=== PATIENT | female | born 1990 | race Caucasian/White ===

== ENCOUNTER 2016-08-11 07:35 | Emergency (ER) | payer MEDICAID ==
[~2016-08-11] VITALS: Ht 152.4 cm; Wt 67.1 kg
[2016-08-11 07:38] VITALS: BP 113/65
--- NOTE | 2016-08-11 07:47 | NUR ---
PATIENT AMBULATED TO BED 5 AT THIS TIME.
--- NOTE | 2016-08-11 07:50 | NUR ---
25/F BIB FAMILY C/O VAGINAL BLEEDING W/ CLOTTS X THIS MORNING; PT STATES HAD VAGINAL BLEEDING X LAST NIGHT; PT STATES ABOUT 1-2 MONTHS , W/ FIRST APPOINTMENT TOMORROW. PT DENIES N/V/D; SKIN IS PINK/WARM/DRY; AAOX4 WITH EVEN AND STEADY GAIT; LUNGS CLEAR BL; HR EVEN AND REGULAR; PT DENIES ANY FEVER, CP, SOB, OR COUGH AT THIS TIME; PATIENT STATES SHARP PAIN OF 8/10 AT THIS TIME; VSS; PATIENT POSITIONED FOR COMFORT; HOB ELEVATED; BEDRAILS UP X2; BED DOWN. ER MD MADE AWARE OF PT STATUS.
--- NOTE | 2016-08-11 07:55 | NUR ---
ER DR BHANDARI EVALUATING AT BEDSIDE
--- NOTE | 2016-08-11 07:57 | NUR ---
US AT BEDSIDE
--- NOTE | 2016-08-11 08:03 | NUR ---
LAB AT BEDSIDE
[2016-08-11] MEDS ORDERED: ACETAMINOPHEN 325 MG TAB PO ONE (08:05)
[2016-08-11 09:54] VITALS: BP 107/67
--- NOTE | 2016-08-11 09:54 | NUR ---
Patient discharged with v/s stable. Written and verbal after care instructions given and explained. Patient verbalized understanding. Ambulatory with steady gait. All questions addressed prior to discharge. Advised to follow up with PMD.
== END 2016-08-11 09:54 | disposition home or self-care (01) ==
LOC: MED 07:50
DX: O20.9 Hemorrhage in early pregnancy, unspecified (principal); Z3A.01 Less than 8 weeks gestation of pregnancy
CPT/HCPCS: 36415; 76817; 81001; 81025; 84702; 85025; 86900; 86901; 87086; 99285; Q0092

== ENCOUNTER 2018-02-08 19:40 | Emergency (ER) | payer MEDICAID ==
[~2018-02-08] VITALS: Ht 160 cm; Wt 72.6 kg
[2018-02-08 19:47] VITALS: BP 126/70
--- NOTE | 2018-02-08 19:47 | NUR ---
TO BED # 9 AMBULATORY REPORT GIVEN TO JUSTIN BOSS
--- NOTE | 2018-02-08 19:52 | NUR ---
Amna strong in [facility] - 02/08/18 at 1952 by [facility] TO ER BED 9
--- NOTE | 2018-02-08 20:20 | NUR ---
PT BIB SELF TO ER FOR GENERALIZED RASH SINCE WEDNESDAY. PT STATES SHE HAD "6 VITAMIN SHOTS IN [place]" LAST SHOT WAS ON WEDNESDAY. SHOTS WERE TO BUTTOCKS REDNESS NOTED TO AREA, PT HAS ITCHING TO AREA AND PAIN WHEN SITTING DOWN. RR EVEN AND UNLABORED, BL BS CLEAR THROUGH OUT. PT LAYING IN BED, IN NO ACUTE DISTRESS, WILL CONTINUE W/ ORDERS.
[2018-02-08] MEDS ORDERED: FAMOTIDINE 20 MG TAB PO ONE (20:30)
[2018-02-08] MEDS ORDERED: predniSONE 20 MG TAB PO ONE (20:30)
[2018-02-08] MEDS ORDERED: cefTRIAXone 1,000 MG in LIDOCAINE MPF 1% - 5 mL VIAL 2.1 ML IM ONE (20:35)
[2018-02-08 21:25] VITALS: BP 117/63
--- NOTE | 2018-02-08 21:25 | NUR ---
Patient discharged with v/s stable. Written and verbal after care instructions given and explained. Patient alert, oriented and verbalized understanding of instructions. Ambulatory with steady gait. All questions addressed prior to discharge. ID band removed. Patient advised to follow up with PMD. Rx of Prednisone, Benadryl, and Keflex given. Patient educated on indication of medication including possible reaction and side effects. Opportunity to ask questions provided and answered.
== END 2018-02-08 21:25 | disposition home or self-care (01) ==
LOC: MED 19:40
DX: R21 Rash and other nonspecific skin eruption (principal); L29.9 Pruritus, unspecified; M79.1 Myalgia
CPT/HCPCS: 96372; 99284; J0696; J2001; J7512; Q0163

== ENCOUNTER 2019-02-21 18:23 | Emergency (ER) | payer MEDICAID ==
[~2019-02-21] VITALS: Ht 157.5 cm; Wt 72.6 kg
[2019-02-21 19:08] VITALS: BP 125/57
[2019-02-21 19:50] LABS: BASOPHILS # (AUTO) 0.1 K/uL (0.00-0.22); BASOPHILS % (AUTO) 1.1 % (0.0-2.0); EOSINOPHILS # (AUTO) 0.1 K/uL (0-0.4); EOSINOPHILS % (AUTO) 1.9 % (0.0-4.0); HEMATOCRIT 39.7 % (36-48); HEMOGLOBIN 12.8 g/dL (12.0-16.0); LYMPHOCYTES # (AUTO) 2.1 K/uL (2.5-16.5); LYMPHOCYTES % (AUTO) 31.9 % (20.5-51.1); MEAN CORPUSCULAR HEMOGLOBIN 26 pg (27-31); MEAN CORPUSCULAR HGB CONC 32 g/dL (33-37); MEAN CORPUSCULAR VOLUME 79.3 fL (80-94); MONOCYTES # (AUTO) 0.4 K/uL (0.8-1.0); MONOCYTES % (AUTO) 5.8 % (1.7-9.3); NEUTROPHILS # (AUTO) 3.8 K/uL (1.8-7.7); NEUTROPHILS % (AUTO) 59.3 % (42.2-75.2); PLATELET COUNT (AUTO) 218 K/uL (140-450); RED CELL DISTRIBUTION WIDTH 14.7 % (11.6-13.7); WHITE BLOOD COUNT (AUTO) 6.5 K/uL (4.8-10.8)
--- NOTE | 2019-02-21 19:54 | NUR ---
PT GOING TO U/S
--- NOTE | 2019-02-21 20:29 | NUR ---
PT RETURNED TO LOBBY FROM US
--- NOTE | 2019-02-21 20:40 | NUR ---
PT AMBULATED TO BED 09.
--- NOTE | 2019-02-21 20:49 | NUR ---
28 Y/O FEMALE PRESENTS TO ED, C/O OF LLQ PAIN THAT RADIATES TO LEFT LEG. PT FOUND OUT SHE IS 5 WEEKS YESTERDAY. C/O OF SPOTTING AND D/C FOR A COUPLE OF DAYS. PAIN ON PALPATION. C/O OF NAUSEA, NO VOMITTING, NO DIARRHEA. 2ND , 1ST RESULTED IN ECTOPIC . PT VSS. ERMD AWARE. WILL CONTINUE TO MONITOR.
[2019-02-21 21:39] LABS: BILIRUBIN,URINE NEGATIVE (NEGATIVE); BLOOD, URINE 2+ (NEGATIVE); COLOR,URINE YELLOW (YELLOW); LEUKOCYTE ESTERASE ,URINE 1+ (NEGATIVE); NITRITE, URINE NEGATIVE (NEGATIVE); UGLUCOSE NEGATIVE (NEGATIVE)
[2019-02-21 21:40] LABS: APPEARANCE,URINE HAZY (CLEAR)
[2019-02-21 21:49] LABS: RBC,URINE 0-5 /HPF (0-5); WBC,URINE 0-5 /HPF (0-5)
[2019-02-21 22:39] VITALS: BP 127/61
--- NOTE | 2019-02-21 22:39 | NUR ---
Patient discharged with v/s stable. Written and verbal after care instructions given and explained. Patient alert, oriented and verbalized understanding of instructions. Ambulatory with steady gait. All questions addressed prior to discharge. ID band removed. Patient advised to follow up with PMD. Rx of MACROBID AND ZOFRAN WAS given. Patient educated on indication of medication including possible reaction and side effects. Opportunity to ask questions provided and answered.
== END 2019-02-21 22:39 | disposition home or self-care (01) ==
LOC: MED 18:23
DX: O20.0 Threatened abortion (principal); O23.42 Unspecified infection of urinary tract in pregnancy, second trimester; Z3A.01 Less than 8 weeks gestation of pregnancy
CPT/HCPCS: 36415; 76817; 81001; 81025; 84702; 85025; 87086; 99284; Q0092

== ENCOUNTER 2022-04-10 20:17 | Emergency (ER) | payer MEDICAID ==
[~2022-04-10] VITALS: Ht 154.9 cm; Wt 72.1 kg
[2022-04-10 20:22] VITALS: BP 115/87
[2022-04-10 21:03] LABS: BASOPHILS # (AUTO) 0.1 K/uL (0.00-0.22); BASOPHILS % (AUTO) 1.8 % (0.0-2.0); EOSINOPHILS # (AUTO) 0.2 K/uL (0-0.4); EOSINOPHILS % (AUTO) 3.2 % (0.0-4.0); HEMATOCRIT 32.3 % (36-48); HEMOGLOBIN 10.1 g/dL (12.0-16.0); LYMPHOCYTES # (AUTO) 2.3 K/uL (2.5-16.5); LYMPHOCYTES % (AUTO) 36.5 % (20.5-51.1); MEAN CORPUSCULAR HEMOGLOBIN 22 pg (27-31); MEAN CORPUSCULAR HGB CONC 31 g/dL (33-37); MEAN CORPUSCULAR VOLUME 68.9 fL (80-94); MONOCYTES # (AUTO) 0.4 K/uL (0.8-1.0); MONOCYTES % (AUTO) 6.4 % (1.7-9.3); NEUTROPHILS # (AUTO) 3.3 K/uL (1.8-7.7); NEUTROPHILS % (AUTO) 52.1 % (42.2-75.2); PLATELET COUNT (AUTO) 223 K/uL (140-450); RED BLOOD CELL COUNT(AUTO) 4.68 MIL/uL (4.20-5.40); RED CELL DISTRIBUTION WIDTH 16.3 % (11.6-13.7); WHITE BLOOD COUNT (AUTO) 6.3 K/uL (4.8-10.8)
[2022-04-10 21:10] LABS: APPEARANCE,URINE CLEAR (CLEAR); BILIRUBIN,URINE NEGATIVE (NEGATIVE); BLOOD, URINE 3+ (NEGATIVE); COLOR,URINE YELLOW (YELLOW); LEUKOCYTE ESTERASE ,URINE NEGATIVE (NEGATIVE); NITRITE, URINE NEGATIVE (NEGATIVE); UGLUCOSE NEGATIVE (NEGATIVE)
[2022-04-10 21:41] LABS: RBC,URINE TOO NUMEROUS TO COUN /HPF (0-5); WBC,URINE NONE SEEN /HPF (0-5)
[2022-04-10 22:30] VITALS: BP 115/87
== END 2022-04-10 22:30 | disposition home or self-care (01) ==
LOC: MED 20:17
DX: O20.8 Other hemorrhage in early pregnancy (principal); R10.2 Pelvic and perineal pain; Z3A.01 Less than 8 weeks gestation of pregnancy
CPT/HCPCS: 36415; 76817; 81001; 84702; 85025; 86900; 86901; 99284; Q0092

== ENCOUNTER 2023-05-10 10:58 | Emergency (ER) | payer MEDICAID ==
[~2023-05-10] VITALS: Ht 162.6 cm; Wt 73.0 kg
[2023-05-10 11:31] VITALS: BP 120/73; PULSE 68; RESP 20; TEMP 98; O2SAT 98
[2023-05-10 12:24] LABS: FLU A ANTIGEN negative (NEGATIVE); FLU B ANTIGEN negative (NEGATIVE)
[2023-05-10] MEDS ORDERED: PRED20TA5 PO (12:58)
[2023-05-10] MEDS ORDERED: IBUP-2213 PO (12:58)
== END 2023-05-10 14:21 | disposition home or self-care (01) ==
LOC: MED 10:58
DX: J20.9 Acute bronchitis, unspecified (principal); Z20.822 Contact with and (suspected) exposure to COVID-19; Z79.899 Other long term (current) drug therapy
CPT/HCPCS: 71045; 99284

== ENCOUNTER 2023-06-17 17:12 | Emergency (ER) | payer MEDICAID ==
[~2023-06-17] VITALS: Ht 167.6 cm; Wt 68.0 kg
[~2023-06-17 17:12] MED LIST: IBUP-2213 PO; PRED20TA5 PO
[2023-06-17 17:59] VITALS: BP 113/60; PULSE 82; RESP 18; TEMP 98; O2SAT 98
[2023-06-17] MEDS ORDERED: DEXAMETHASONE 4 MG/ML VIAL PO ONE (18:15)
[2023-06-17] MEDS ORDERED: ALBUTEROL HFA MDI 90 MCG/ACTUATION 8 GM INH ONE (18:15)
[2023-06-17] MEDS ORDERED: ALBUTEROL 0.083% 2.5 MG/3 ML NEBU INH ONE (18:35)
[2023-06-17] MEDS ORDERED: ALBU0.0912 INH (18:37)
[2023-06-17] MEDS ORDERED: METH4TAB1 PO ×2 (18:37→20:48)
[2023-06-17 18:44] VITALS: PULSE 79; RESP 18; O2SAT 98
== END 2023-06-17 18:59 | disposition home or self-care (01) ==
LOC: MED 17:12
DX: J20.9 Acute bronchitis, unspecified (principal); Z79.899 Other long term (current) drug therapy
CPT/HCPCS: 71046; 81025; 94640; 99283; J1100; J7613

== ENCOUNTER 2024-01-06 17:20 | Observation (INO) | payer MEDICAID, OTHER ==
[~2024-01-06] VITALS: Ht 157.5 cm; Wt 77.1 kg
[~2024-01-06 17:20] MED LIST changes: +ALBU0.0912 INH; +METH4TAB1 PO
[2024-01-06 18:21] VITALS: BP 112/65; PULSE 83; RESP 18; TEMP 98; O2SAT 99
== END 2024-01-06 20:00 | disposition home or self-care (01) ==
LOC: MLD 17:20
PROVIDERS: ADMIT Obstetrics & Gynecology; ATTEND Obstetrics & Gynecology
DX: O26.892 Other specified pregnancy related conditions, second trimester (principal); R10.30 Lower abdominal pain, unspecified; R06.02 Shortness of breath; Z3A.23 23 weeks gestation of pregnancy
CPT/HCPCS: 76805; 81000; G0378; Q0092